=== PATIENT | female | born 1975 | race Caucasian/White ===

== ENCOUNTER 2018-05-05 19:39 | Inpatient (IN) | payer MEDICAID ==
[~2018-05-05] VITALS: Ht 160 cm; Wt 86.5 kg
[~2018-05-05 19:39] MED LIST: HTN MEDICATION; LABE100T39 PO; NIFE30TA66 PO; PREN1TAB62
[2018-05-05 20:48] VITALS: BP 191/92; PULSE 71; RESP 18; Ht 160 cm; Wt 86.5 kg
[2018-05-05] MEDS ORDERED: MAGNESIUM SULFATE 4 GM/100 ML 100 ML IVPB ONE (21:00)
[2018-05-05] MEDS ORDERED: LABETALOL HCL 20MG INJ IV PRN (21:00)
[2018-05-05] MEDS ORDERED: MAGNESIUM SULFATE 4 GM/100 ML 100 ML ONE (21:04)
[2018-05-05] MEDS ORDERED: MAGNESIUM SULFATE 20 GM/500 ML 500 ML IV ONE (21:04)
[2018-05-05] MEDS: LACTATED RINGER'S 1,000 ML IV SCH (21:23)
[2018-05-05] MEDS ORDERED: LACTATED RINGER'S 1,000 ML IV SCH (21:30)
[2018-05-05] MEDS: MAGNESIUM SULFATE 20 GM/500 ML 500 ML IV SCH (21:47)
[2018-05-05] MEDS ORDERED: BETAMET NA PHOS/AC(6 MG/ML) 2 ML INJ SYG IM ONE (22:00)
[2018-05-05] MEDS: LABETALOL HCL 20MG INJ IV PRN ×2 (22:33→23:27)
[2018-05-05] MEDS ORDERED: METH500T24 PO (23:55)
[2018-05-05] MEDS ORDERED: FER325 PO (23:55)
[2018-05-05] MEDS ORDERED: FOLI-49 PO (23:55)
[2018-05-05] MEDS ORDERED: CALC-207 PO (23:55)
[2018-05-05] MEDS ORDERED: ASPI325T30 PO (23:55)
[2018-05-06] VITALS (8 sets, daily range): BP systolic 145–177; BP diastolic 75–88; PULSE 61–69; RESP 16–20
[2018-05-06] MEDS ORDERED: HYDROCODONE/APAP (5/325) TAB PO ONE (00:30)
[2018-05-06] MEDS ORDERED: CEFAZOLIN 2 GM/50 ML (PMX) 50 ML IVPB ONE (00:46)
[2018-05-06] MEDS ORDERED: MISOPROSTOL 200 MCG TAB PR PRN ×2 (01:00→04:00)
[2018-05-06] MEDS ORDERED: CARBOPROST 250 MCG INJ IM PRN ×2 (01:00→04:00)
[2018-05-06] MEDS ORDERED: METHYLERGONOVINE 0.2 MG INJ IM PRN (01:00)
[2018-05-06] MEDS ORDERED: OXYTOCIN 30 UNITS/LR 500 ML IV SCH ×2 (01:00→03:39)
[2018-05-06] MEDS ORDERED: OXYTOCIN 30 UNITS/LR 500 ML IV PRN ×2 (01:00→04:00)
[2018-05-06] MEDS: LABETALOL 200 MG TAB PO SCH ×4 (01:00→22:08)
[2018-05-06] MEDS ORDERED: CEFAZOLIN 2 GM/50 ML (PMX) 50 ML IVPB SCH (01:00)
[2018-05-06] MEDS ORDERED: LABETALOL HCL 20MG INJ IV ONE ×2 (01:00→04:00)
[2018-05-06] MEDS: LABETALOL HCL 20MG INJ IV PRN ×2 (01:20→02:03)
[2018-05-06] MEDS ORDERED: hydrALAzine 20 MG INJ IV ONE ×2 (01:30→04:00)
--- NOTE | 2018-05-06 02:07 | PREAC ---
Date/Time of Note Date/Time of Note DATE: 05/06/18 TIME: 02:06 Anesthesia Eval and Record Evaluation Time Pre-Procedure Interview DATE: 05/06/18 TIME: 02:06 Age 43 Sex female NPO: 8 hrs Preoperative diagnosis high blood pressure Planned procedure c section Past Medical History Past Medical History: Includes Cardio: HTN Surgery & Anesthesia Issues No known issue Meds Anticoagulation: No Beta Joan within 24 hr: No Reason Beta Joan not given: Pt. not on B-Joan Reported Medications Aspirin* (Aspirin*) 325 Mg Tablet, 81 MG PO DAILY, TAB 05/05/18 Methyldopa* (Methyldopa*) 500 Mg Tablet, 500 MG PO BID, TAB 05/05/18 Calcium Carbonate/Vitamin D3 (Calcium 500 + Vit D 200 Tablet) 1 Each Tablet, 1 EACH PO, TAB 05/05/18 Folic Acid* (Folic Acid*) 1 Mg Tablet, 1 MG PO DAILY, TAB 05/05/18 Ferrous Sulfate* (Ferrous Sulfate*) 325 Mg Tabec, 325 MG PO DAILY, TAB 05/05/18 Vit-Iron Fumarate-FA ( Vitamin Tablet) 1 Each Tablet, EACH 11/07/13 Nifedipine* (Procardia XL*) 30 Mg/Bottle Tab.osm.24, 30 MG PO DAILY, TAB.SA 11/07/13 Labetalol Hcl (Labetalol Hcl) 100 Mg Tab, 200 MG PO BID, TAB 11/07/13 Current Medications Magnesium Sulfate 500 ml @ 50 mls/hr Q10H IV Last administered on 05/05/18at 21:47; Admin Dose 50 MLS/HR; Start 05/05/18 at 21:30 Lactated Ringer's 1,000 ml @ 75 mls/hr [id number] IV Last administered on 05/05/18at 21:23; Admin Dose 75 MLS/HR; Start 05/05/18 at 21:30 Labetalol HCl (Labetalol) 20 mg PRN PRN IV ELEVATED BLOOD PRESSURE Last administered on 05/06/18at 01:20; Admin Dose 20 MG; Start 05/05/18 at 22:00 Betamethasone Acet/Betameth SodPhos (Celestone Soluspan) 12 mg ONCE ONCE IM ; Start 05/06/18 at 23:00; Stop 05/06/18 at 23:01 Labetalol HCl (Normodyne) 200 mg Q8 PO ; Start 05/06/18 at 01:00 Cefazolin Sodium/ Dextrose 50 ml @ 100 mls/hr ONCE IVPB ; Start 05/06/18 at 01:00 Oxytocin/Lactated Ringer's 500 ml @ 125 mls/hr POST IV ; Start 05/06/18 at 01:00 Oxytocin/Lactated Ringer's 500 ml @ 0 mls/hr ONCE PRN IV VAGINAL BLEEDING; Start 05/06/18 at 01:00 Methylergonovine Maleate (Methergine) 0.2 mg ONCE PRN IM VAGINAL BLEEDING; Start 05/06/18 at 01:00 Carboprost Tromethamine (Hemabate) 250 mcg ONCE PRN IM VAGINAL BLEEDING; Start 05/06/18 at 01:00 Misoprostol (Cytotec) 1,000 mcg ONCE PRN [place] VAGINAL BLEEDING; Start 05/06/18 at 01:00 Meds reviewed: Yes Allergies Coded Allergies: No Known Allergy (Verified , 05/05/18) Allergies Reviewed: Yes Labs/Studies Labs Reviewed: Reviewed by anesthesiologist Result Diagram: 05/05/18211405/05/182114 Laboratory Tests 05/05/18 21:15 Blood Bank Test 05/05/18 21:15 Antibody Screen NEGATIVE Blood Type A POSITIVE Rh Immune Globulin Candidate NO test: N/A Pre-procedure Exam Last vitals Vital Signs Date Temp Pulse Resp B/P (MAP) Pulse Ox O2 O2 Flow FiO2 Time Delivery Rate 05/05/18 98.7 71 18 191/92 Room Air 20:48 (125) Airway: Adequate mouth opening, Adequate thyromental dist Mallampati: Mallampati IV Teeth: Normal Lung: Normal Heart: Normal ASA Physical Status ASA physical status: 3 Emergency: None Pre-operative Attestations Prior to commencing anesthesia and surgery, the patient was re-evaluated, there was verification of: *The patient's identity *The results of appropriate recent lab work and preoperative vital signs *The above evaluation not changing prior to induction *Anesthetic plan, risk benefits, alternative and complications discussed with patient/family; questions answered; patient/family understands, accepts and wishes to proceed. ACE DOTSON DO May 06, 2018 02:07
[2018-05-06] MEDS ORDERED: morphine SULFATE/PF (10 MG/10 ML) INJ ONE (02:08)
[2018-05-06] MEDS ORDERED: ONDANSETRON 4 MG INJ ONE (02:08)
[2018-05-06] MEDS ORDERED: FENTAnyl 50 MCG/ML VIAL ONE (02:08)
[2018-05-06] MEDS ORDERED: DEXAMETHASONE 4 MG/ML 1 ML INJ ONE (02:09)
[2018-05-06] MEDS ORDERED: OXYTOCIN 30 UNITS/LR 500 ML IV ONE (02:12)
[2018-05-06] MEDS ORDERED: KETOROLAC 30 MG INJ ONE ×2 (03:15→14:24)
[2018-05-06] MEDS ORDERED: MIDAZOLAM 1 MG/ML 2 ML INJ ONE (03:29)
--- NOTE | 2018-05-06 03:35 | OPPN ---
Date/Time of Note Date/Time of Note DATE: 05/06/18 TIME: 03:33 Operative Report Planned Procedure Procedure date May 06, 2018 Procedure(s) repeat low transverse CD Performed by see signature line Aboriginal Liaison Officer: TOOTIE SAL 2nd Aboriginal Liaison Officer none Anesthesiologist: ACE DOTSON DO Pre-procedure diagnosis iup at 34 wks ga, preeclampsia with severe features, previous CD [id number] Anesthesia Type: [id number] general Post-Procedure Post-procedure diagnosis same Findings a viable female 6/9, weight 2640 grams X1 reducible cord. normal uterus tubus and ovaries Estimated Blood Loss: 500 - 600 mls Specimen(s) none Grafts/Implant(s) none Complication(s) none MATILDA CLAROS MD May 06, 2018 03:35
[2018-05-06] MEDS ORDERED: LIDOCAINE 2% (SDV) 5 ML INJ ONE (03:37)
[2018-05-06] MEDS ORDERED: SUCCINYLCHOLINE CHLORIDE 100 MG/5 ML SYG IV ONE (03:37)
[2018-05-06] MEDS ORDERED: PROPOFOL 20 ML ONE (03:37)
[2018-05-06] MEDS ORDERED: MAGNESIUM SULFATE 20 GM/500 ML 500 ML IV SCH ×2 (03:39→14:00)
[2018-05-06] MEDS: LACTATED RINGER'S 1,000 ML IV SCH ×4 (03:39→21:32)
--- NOTE | 2018-05-06 03:46 | PAC ---
Date/Time of Note Date/Time of Note DATE: 05/06/18 TIME: 03:45 Post-Anesthesia Notes Post-Anesthesia Note Last documented vital signs Vital Signs Date Temp Pulse Resp B/P (MAP) Pulse Ox O2 O2 Flow FiO2 Time Delivery Rate 05/06/18 98 78 18 130/65 93 Room Air 0345 Activity: WNL Respiratory function: WNL Cardiovascular function: WNL Mental status: Baseline Pain reasonably controlled: Yes Hydration appropriate: Yes Nausea/Vomiting absent: Yes ACE DOTSON DO May 06, 2018 03:46
[2018-05-06] MEDS ORDERED: LABETALOL HCL 20MG INJ IV PRN ×5 (04:00)
[2018-05-06] MEDS ORDERED: ONDANSETRON 4 MG INJ IV PRN (04:00)
[2018-05-06] MEDS ORDERED: CA GLUCONATE (GM) 10% 10ML INJ IV PRN (04:00)
[2018-05-06] MEDS ORDERED: LANOLIN HPA 1 PKT TOP PRN (04:00)
[2018-05-06] MEDS ORDERED: hydrALAzine 20 MG INJ IV PRN ×3 (04:00)
[2018-05-06] MEDS ORDERED: NACL 0.9% 3 ML SYG IV SCH ×2 (04:00)
[2018-05-06] MEDS ORDERED: morphine (1 MG/ML) 10ML SYRINGE IV PRN ×3 (04:00)
--- NOTE | 2018-05-06 06:10 | PREOPHP ---
DATE OF ADMISSION: 05/05/2018 HISTORY OF PRESENT ILLNESS: Ms. Keira Nguyen is a 43-year-old 7, para 3, EDC 019 intrauterine at 34 weeks and 3 days gestational age, was sent from clinic today for scooby lusita of elevated blood pressures of 184/90. She has a history of gestational hypertension where s he is taking multiple antihypertensive medications; however, her blood pressures continued to be elev ated. When she presented to triage, her highest blood pressure was 191/92 and she is complaining of headaches. She was started on magnesium sulfate for seizure prophylaxis and given steroid treatment for lung maturity. She was also given antihypertensive medications; however, her blood pressur es continued to be elevated. Her care took place with Dr. Holloway at approximately 16 wee ks' gestational age. PAST MEDICAL HISTORY: Gestational hypertension. MEDICATIONS: 1. Methyldopa. 2. Iron. 3. Nifedipine. 4. Labetalol. OBSTETRIC HISTORY: Vaginal deliveries x2, one , which was required secondary to preeclampsi a, x3 missed AB. GYNECOLOGIC HISTORY: Twelve, regular 3 to 4 days. Denies any sexually transmitted disease. Sexuall y active with one partner. SOCIAL HISTORY: Denies any smoking, drugs or alcohol. FAMILY HISTORY: None. REVIEW OF SYSTEMS: All within normal except history of present illness. PHYSICAL EXAMINATION: HEENT: Within normal. LUNGS: CTA. CARDIOVASCULAR: S1, S2, regular rhythm. ABDOMEN: Gravid, nontender. Negative CVA bilateral. EXTREMITIES: Negative. No calf tenderness. PELVIC: Vaginal exam deferred. heart tracing category 1. [place]: No contractions. LABORATORY DATA: Urinalysis positive for proteins. Estimated weight of 3083 grams consistent with 36 weeks and 5 days gestational age by ultrasound. ASSESSMENT: A 43-year-old 7, para 3, intrauterine at 34 weeks and 3 days gestation al age, advanced maternal age, preeclampsia with severe features, previous section. PLAN: Consent for repeat delivery. Risks, benefits and alternatives explained. Plan NICU to consult. Continue seizure prophylaxis and antihypertensive meds. Dictated By: MATILDA GONZALEZ/TITA Conf#: [id number] DID#: [id number]
--- NOTE | 2018-05-06 06:19 | OPR ---
DATE OF OPERATION: 05/06/2018 PREOPERATIVE DIAGNOSES: Intrauterine at 34 weeks gestational age, advanced maternal age, p reeclampsia with severe features, previous delivery. POSTOPERATIVE DIAGNOSES: Intrauterine at 34 weeks gestational age, advanced maternal age, preeclampsia with severe features, previous delivery. PROCEDURE PERFORMED: Repeat low transverse delivery. SURGEON: Santos Rice MD. TRAVOGRAPH OPERATOR: Dr. Medina. ANESTHESIOLOGIST: Dr. Lauren. ANESTHESIA: General. COMPLICATIONS: None. ESTIMATED BLOOD LOSS: 500 mL. FINDINGS: A viable female, Apgars 6, 7 and 9 respectively at 1 and 5 and 10 minutes, weight 2640 gra ms, x1 reducible cord around the neck. Normal uterus, tubes and ovaries. DESCRIPTION OF PROCEDURE: After explaining the risks, benefits and alternatives, the patient consent signed in chart, the patient was taken to the operating room. She was prepared and draped in normal sterile fashion in dorsal supine position with a leftward tilt. General anesthesia was given. At t his point, a Pfannenstiel skin incision was then made with a scalpel and carried to the underlying of the fascia. The fascia was incised in the midline and incision was extended laterally with [place] sci ssors. The superior aspect of the fascial incision was then grasped with curved clamps, elevated and the underlying rectus muscles dissected off bluntly. Attention was then turned to the inferior aspe ct of the incision which in similar fashion was grasped, tented up with curved clamps and the rectus muscles dissected off bluntly. The rectus muscles in midline, peritoneum identified, grasp ed with pickups and sharply with Metzenbaum scissors. The peritoneal incision was extended superiorl y with good visualization of bladder. The bladder blade was then inserted and the vesicouterine margo toneum identified, grasped with pickups and sharply with Metzenbaum scissors. This incision was exte nded laterally and bladder flap created digitally. The bladder blade was reinserted and lower segmen t incised in transverse fashion with a scalpel. The uterine incision was extended laterally. The bl adder blade was removed and the 's head delivered atraumatically. The nose and mouth were suct ioned and cord clamped and cut. The infant was handed off to waiting data security administrator. The placenta was then removed. The uterus exteriorized and cleared of all clots and debris. The uterine incision wa s repaired with 1-0 chromic in a running locked fashion. A second layer of same suture was used for imbrication obtaining excellent hemostasis. The uterus was returned to the abdomen. The gutters wer e cleared of all clots. The peritoneum and rectus abdominis muscles were reapproximated with 2-0 Markos ryl in interrupted fashion. The fascia was reapproximated with 0 Vicryl in a running fashion. The s ubcutaneous tissue was reapproximated with 2-0 plain gut in a running fashion. The skin was closed w ith agatha. The patient tolerated the procedure well. The patient was extubated and taken to [facility] room in stable condition. Dictated By: SANTOS GONZALEZ/TITA Conf#: [id number] DID#: [id number]
--- NOTE | 2018-05-06 07:17 | TRIAGE ---
OB Triage Datetime Report Generated by CPN: 05/06/2018 07:17 Datetime: 05/06/2018 05:41 Stage of : Recovery Pain Assessment Pain Scale: 0 Pain Presence: None/Denies Pain Type: N/A Datetime: 05/06/2018 05:26 Stage of : Recovery Pain Assessment Pain Scale: 0 Pain Presence: None/Denies Pain Type: N/A Datetime: 05/06/2018 05:11 Stage of : Recovery Pain Assessment Pain Scale: 0 Pain Presence: None/Denies Pain Type: N/A Datetime: 05/06/2018 04:56 Stage of : Recovery Pain Assessment Pain Scale: 0 Pain Presence: None/Denies Pain Type: N/A Datetime: 05/06/2018 04:41 Stage of : Recovery Pain Assessment Pain Scale: 0 Pain Presence: None/Denies Pain Type: N/A Datetime: 05/06/2018 04:26 Stage of : Recovery Pain Assessment Pain Scale: 0 Pain Presence: None/Denies Pain Type: N/A Datetime: 05/06/2018 04:11 Stage of : Recovery Pain Assessment Pain Scale: 0 Pain Presence: None/Denies Pain Type: N/A Datetime: 05/06/2018 03:57 Stage of : Recovery Pain Assessment Pain Scale: 0 Pain Presence: None/Denies Pain Type: N/A Datetime: 05/06/2018 03:41 Stage of : Recovery Temperature Route: Axillary Pain Assessment Pain Scale: 0 Pain Presence: None/Denies Pain Type: N/A Datetime: 05/06/2018 02:35 Labor Evaluation Frequency: x1 Monitor Mode: External Duration (sec)2399: 90 Quality: Mild Pattern: Normal: <= 5 Contractions in 10 Minutes Resting Tone [place]: Relaxed Heart Rate FHR Baseline Rate: 120 Monitor Mode: External US Variability: Moderate 6-25 bpm Accelerations: 15X15 Decelerations: None Category: Category I Datetime: 05/06/2018 02:00 Labor Evaluation Frequency: x3 Monitor Mode: External Duration (sec)2399: 40-70 Quality: Mild Pattern: Normal: <= 5 Contractions in 10 Minutes Resting Tone [place]: Relaxed Heart Rate FHR Baseline Rate: 120 Monitor Mode: External US Variability: Moderate 6-25 bpm Accelerations: 15X15 Decelerations: None Category: Category I Datetime: 05/06/2018 01:00 Labor Evaluation Frequency: x2 Monitor Mode: External Duration (sec)2399: 70-80 Quality: Mild Pattern: Normal: <= 5 Contractions in 10 Minutes Resting Tone [place]: Relaxed Heart Rate FHR Baseline Rate: 120 Monitor Mode: External US Variability: Moderate 6-25 bpm Accelerations: 15X15 Decelerations: None Category: Category I Datetime: 05/06/2018 00:00 Monitor Mode: External Contraction Comments: NO UC'S NOTED Heart Rate FHR Baseline Rate: 125 Monitor Mode: External US Variability: Moderate 6-25 bpm Accelerations: 15X15 Decelerations: None Category: Category I Datetime: 05/05/2018 23:54 Monitor Mode: External US Datetime: 05/05/2018 23:30 Stage of : Antepartum Datetime: 05/05/2018 23:29 Monitor Mode: External US Datetime: 05/05/2018 23:17 Monitor Mode: External Monitor Mode: External US Datetime: 05/05/2018 23:00 Monitor Mode: External Contraction Comments: NO UC'S NOTED Heart Rate FHR Baseline Rate: 125 Monitor Mode: External US Variability: Moderate 6-25 bpm Accelerations: 15X15 Decelerations: None Category: Category I Datetime: 05/05/2018 22:51 Stage of : Antepartum Datetime: 05/05/2018 22:29 Vaginal Exam Membrane Status: Intact Datetime: 05/05/2018 22:28 Monitor Mode: External Monitor Mode: External US Datetime: 05/05/2018 22:25 Stage of : Antepartum Datetime: 05/05/2018 21:50 Assessment Type: Admission Assessment Maternal Assessment Level of Consciousness: Fully Conscious DTR's/Clonus: DTRs 2+; No Clonus Headache: Denies Blurred Vision: No Respiratory Effort: Unlabored; Regular Rhythm; Equal Expansion Breath Sounds, Left: Clear and Equal Breath Sounds, Right: Clear and Equal Nausea/Vomiting: Denies RUQ Epigastric Pain: Denies Facial Edema: None Fall Risk Assessment History of Falling: (0) No Secondary Diagnosis: (0) No Ambulatory Aid: (0) Bedrest/Nurse Assist Gait: (0) Normal/Bedrest/Immobile Mental Status: (0) Oriented to Own Ability Datetime: 05/05/2018 21:49 Time of Arrival: 05/05/2018 21:00 EGA: 34.0 Arrived By: Ambulatory Arrived From: Home Datetime: 05/05/2018 20:45 Stage of : OB Triage Assessment Type: Triage Time Provider Notified: 05/05/2018 20:38 Maternal Assessment Level of Consciousness: Fully Conscious DTR's/Clonus: DTRs 2+; No Clonus Headache: Denies Blurred Vision: No Respiratory Effort: Unlabored; Regular Rhythm; Equal Expansion Breath Sounds, Left: Clear and Equal Breath Sounds, Right: Clear and Equal Nausea/Vomiting: Denies RUQ Epigastric Pain: Denies Lower Extremities Edema: None Degree: None Upper Extremities Edema: None Degree: None Facial Edema: None Temperature Route: Oral Fall Risk Assessment History of Falling: (0) No Secondary Diagnosis: (0) No Ambulatory Aid: (0) Bedrest/Nurse Assist IV Therapy: (0) No Gait: (0) Normal/Bedrest/Immobile Mental Status: (0) Oriented to Own Ability Fall Score: 0 Fall Risk Score Definition: No Risk: No action required Monitor Mode: External Contraction Comments: none Heart Rate FHR Baseline Rate: 130 Monitor Mode: External US Variability: Moderate 6-25 bpm Accelerations: 15X15 Decelerations: None Category: Category I Pain Assessment Pain Scale: 0 Pain Presence: None/Denies Pain Type: N/A Pain Relief Measures: Comfort Measures Datetime: 05/05/2018 20:43 Time of Arrival: 05/05/2018 19:30 EGA: 34.0 Arrived By: Ambulatory Arrived From: Home Chief Complaint: Patient came in stating that she was to be induced today for high blood pressures. Patient is previous c/s x 1. Movement: Present Contractions: Denies/Absent Rupture of Membranes: Denies Vaginal Bleeding: None Vaginal Discharge: Denies Recent Sexual Intercouse: Denies Abdominal Trauma: Not Applicable Patient Complaints: None Time Provider Notified: 05/05/2018 20:38 Provider Notified: Dwayne Initial Plan: VS, BP q15 min, EFM Datetime: 05/05/2018 20:07 Membranes Ruptured Date/Time: 05/06/2018 03:06 Membranes Rupture Method: Artificial Amniotic Fluid Color: Clear Amniotic Fluid Amount: Large Amniotic Fluid Odor: Normal Presentation 'A': Cephalic
[2018-05-06] MEDS: MAGNESIUM SULFATE 20 GM/500 ML 500 ML IV SCH ×2 (08:00→18:40)
[2018-05-06] MEDS ORDERED: DIPHENHYDRAMINE 50 MG INJ IV PRN (10:00)
[2018-05-06] MEDS: CEFAZOLIN 2 GM/50 ML (PMX) 50 ML IVPB SCH ×2 (11:06→18:40)
[2018-05-06] MEDS ORDERED: OXYCODONE/ACETAMINOPHEN (5/325) TAB ONE (13:53)
[2018-05-06] MEDS: OXYTOCIN 30 UNITS/LR 500 ML IV SCH (14:04)
[2018-05-06] MEDS ORDERED: KETOROLAC 30 MG INJ IV STA (14:15)
[2018-05-06] MEDS: SENNA/DOCUSATE NA (8.6MG/50MG) TAB PO SCH ×2 (18:40→21:29)
[2018-05-06] MEDS ORDERED: METHYLDOPA 500 MG TAB PO SCH (21:00)
[2018-05-06] MEDS ORDERED: LABETALOL 100 MG TAB PO SCH (21:00)
[2018-05-06] MEDS ORDERED: BETAMET NA PHOS/AC(6 MG/ML) 2 ML INJ SYG IM ONE (23:00)
[2018-05-06] MEDS ORDERED: KETOROLAC 30 MG INJ IV ONE (23:47)
[2018-05-07] VITALS (17 sets, daily range): BP systolic 127–182; BP diastolic 59–84; PULSE 63–83; RESP 18–20
[2018-05-07] MEDS: OXYTOCIN 30 UNITS/LR 500 ML IV SCH ×2 (00:04→10:04)
[2018-05-07] MEDS: OXYCODONE/ACETAMINOPHEN (5/325) TAB PO PRN ×3 (03:00→21:11)
[2018-05-07] MEDS: CEFAZOLIN 2 GM/50 ML (PMX) 50 ML IVPB SCH (03:01)
[2018-05-07] MEDS: IBUPROFEN 600 MG TAB PO SCH ×4 (05:59→23:30)
[2018-05-07] MEDS: LABETALOL 200 MG TAB PO SCH ×3 (06:29→22:02)
[2018-05-07] MEDS: LACTATED RINGER'S 1,000 ML IV SCH (06:32)
[2018-05-07] MEDS ORDERED: ASPIRIN 81 MG TAB PO SCH (09:00)
[2018-05-07] MEDS ORDERED: FERROUS SULFATE (EC) 325 MG TAB PO SCH (09:00)
[2018-05-07] MEDS: SENNA/DOCUSATE NA (8.6MG/50MG) TAB PO SCH ×2 (09:04→21:10)
[2018-05-07] MEDS: FOLIC ACID 1 MG TAB PO SCH (09:04)
--- NOTE | 2018-05-07 10:54 | QN ---
Documentation Comment progress note pod 1 patient seen and evaluated no complaints no headache, n/v, sob, visual changes, epigastric pain bp 140/70 vs stable afebrile ab soft nt, no epigastric tenderness, dressing clean/dry extremity no edema no calf tenderness a sp cd pod 1 completed mg 24 hrs pp stable afebrile p.iron supplement encourage ambulation MATIDLA CLAROS MD May 07, 2018 10:54
[2018-05-07] MEDS: NIFEdipine (XL) 30 MG TAB PO SCH (17:06)
[2018-05-07] MEDS: FERROUS SULFATE (EC) 325 MG TAB PO SCH (21:10)
[2018-05-08] VITALS (9 sets, daily range): BP systolic 127–195; BP diastolic 63–88; PULSE 63–78; RESP 16–21
[2018-05-08] MEDS: IBUPROFEN 600 MG TAB PO SCH ×3 (05:34→17:40)
[2018-05-08] MEDS ORDERED: hydrALAzine 20 MG INJ IV ONE (06:00)
[2018-05-08] MEDS: LABETALOL 200 MG TAB PO SCH ×3 (06:53→22:18)
[2018-05-08] MEDS: NIFEdipine (XL) 30 MG TAB PO SCH (06:54)
[2018-05-08] MEDS ORDERED: BISACODYL 10 MG SUPP PR ONE (07:00)
--- NOTE | 2018-05-08 09:12 | QN ---
Documentation Comment progress note pod 2 patient seen and evaluated no complaints no headache, n/v, sob, visual changes, epigastric pain bp 145/69 vs stable afebrile ab soft nt, no epigastric tenderness, c/d/i no distention extremity no edema no calf tenderness a sp cd pod 2 completed mg 24 hrs pp stable afebrile p.iron supplement encourage ambulation hospitalist to manage bp's low sodium diet MATILDA CLAROS MD May 08, 2018 09:12
[2018-05-08] MEDS: FERROUS SULFATE (EC) 325 MG TAB PO SCH ×2 (10:32→20:40)
[2018-05-08] MEDS: SENNA/DOCUSATE NA (8.6MG/50MG) TAB PO SCH ×2 (10:32→20:40)
[2018-05-08] MEDS: FOLIC ACID 1 MG TAB PO SCH (10:32)
--- NOTE | 2018-05-08 12:09 | CONS ---
Date/Time of Note Date/Time of Note DATE: 05/08/18 TIME: 12:00 Assessment/Plan Assessment/Plan Hospital Course Assessment and plan: 43-year-old female hypertension, preeclampsia, 2 days ago, with continued high blood pressure. #Hypertension: Could be secondary to patient's preeclampsia, also patient does have a history of prior high blood pressure before -Would agree with the current medications including Procardia XL and labetalol PO, blood pressure appears to be improving this morning with administration of those medications -We will add hydralazine IV as needed systolic greater than 160 #Status post : Postop day #2. Again patient also treated for preeclampsia -Continue current recommendations per primary team We will continue to follow along with you. Result Diagram: 05/07/18 0704 05/06/18 1423 Results 24hrs Laboratory Tests Test 05/08/18 06:44 Lab Scanned Report REFERENCE LAB Consultation Date/Type/Reason Admit Date/Time May 05, 2018 at 20:38 Hx of Present Illness 43-year-old female past medical history of hypertension prior to , recent preeclampsia and performed on May 06, 2018, who presently has some high blood pressure. 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 Patient presently denies any vision changes, headaches, chest pain, shortness of breath, upper or lower GI bleeding, nausea vomiting, fevers or chills, diarrhea or constipation. Presently blood pressure stable systolic is in the 120 range, patient did take 2 p.o. blood pressure medicines this morning labetalol and Procardia XL. Past Medical History Medications Current Medications IV Flush (NS 3 ml) 3 ml PER PROTOCOL IV ; Start 05/06/18 at 04:00 Oxycodone/ Acetaminophen (Percocet (5/ 325)) 1 tab Q4H PRN PO PAIN LEVEL 4-6; Start 05/07/18 at 02:10 Oxycodone/ Acetaminophen (Percocet (5/ 325)) 2 tab Q4H PRN PO PAIN LEVEL 7-10 Last administered on 05/07/18at 21:11; Admin Dose 2 TAB; Start 05/07/18 at 02:10 Ibuprofen (Motrin) 600 mg Q6 PO Last administered on 05/08/18at 05:34; Admin Dose 600 MG; Start 05/07/18 at 06:00 Simethicone (Mylicon) 160 mg Q8H PRN PO DISTENSION/GAS/BLOATING Last administered on 05/08/18at 01:04; Admin Dose 160 MG; Start 05/06/18 at 04:00 Senna/Docusate Sodium (Senokot-S) 1 tab BID PO Last administered on 05/08/18at 10:32; Admin Dose 1 TAB; Start 05/06/18 at 09:00 Lanolin (Lanolin Hpa) 1 applic BEDSIDE MEDICATION PRN TOP BEDSIDE FOR MALU TO HIMANSHU MANJARREZ; Start 05/06/18 at 04:00 Oxytocin/Lactated Ringer's 500 ml @ 0 mls/hr ONCE PRN IV VAGINAL BLEEDING; Start 05/06/18 at 04:00 Carboprost Tromethamine (Hemabate) 250 mcg ONCE PRN IM VAGINAL BLEEDING; Start 05/06/18 at 04:00 Misoprostol (Cytotec) 1,000 mcg ONCE PRN SD VAGINAL BLEEDING; Start 05/06/18 at 04:00 IV Flush (NS 3 ml) 3 ml PER PROTOCOL IV ; Start 05/06/18 at 04:00 Calcium Gluconate (Ca Gluc) 1 gm ONCE PRN IV MAGNESIUM TOXICITY; Start 05/06/18 at 04:00 Labetalol HCl (Labetalol) 40 mg ONCE PRN IV ELEVATED BLOOD PRESSURE; Start 05/06/18 at 04:00 Labetalol HCl (Labetalol) 80 mg ONCE PRN IV ELEVATED BLOOD PRESSURE; Start 05/06/18 at 04:00 Hydralazine HCl (Apresoline) 10 mg ONCE PRN IV ELEVATED BLOOD PRESSURE Last administered on 05/07/18at 03:08; Admin Dose 10 MG; Start 05/06/18 at 04:00 Hydralazine HCl (Apresoline) 10 mg ONCE PRN IV ELEVATED BLOOD PRESSURE Last administered on 05/06/18at 05:46; Admin Dose 10 MG; Start 05/06/18 at 04:00 Labetalol HCl (Labetalol) 20 mg ONCE PRN IV ELEVATED BLOOD PRESSURE; Start 05/06/18 at 04:00 Labetalol HCl (Labetalol) 40 mg ONCE PRN IV ELEVATED BLOOD PRESSURE; Start 05/06/18 at 04:00 Diphenhydramine HCl (Benadryl) 25 mg Q6H PRN IV puritis Last administered on 05/06/18at 10:10; Admin Dose 25 MG; Start 05/06/18 at 10:00 Folic Acid (Folic Acid) 1 mg DAILY PO Last administered on 05/08/18at 10:32; Admin Dose 1 MG; Start 05/07/18 at 09:00 Labetalol HCl (Normodyne) 200 mg Q8 PO Last administered on 05/08/18at 06:53; Admin Dose 200 MG; Start 05/06/18 at 16:00 Ferrous Sulfate (Ferrous Sulfate (Ec)) 325 mg BID PO Last administered on 05/08/18at 10:32; Admin Dose 325 MG; Start 05/07/18 at 21:00 Nifedipine (Procardia Xl) 30 mg DAILY PO Last administered on 05/08/18at 06:54; Admin Dose 30 MG; Start 05/07/18 at 16:30 Allergies: Coded Allergies: No Known Allergy (Verified , 05/05/18) Past Surgical History Past Surgical Hx: other ( 2 days ago) Social History Smoking Status: Never smoker Exam/Review of Systems Vital Signs Vitals Vital Signs Date Temp Pulse Resp B/P (MAP) Pulse Ox O2 O2 Flow FiO2 Time Delivery Rate 05/08/18 98.3 69 18 145/69 Room Air 08:32 (94) 05/07/18 95 08:40 Intake and Output 05/07/18 05/07/18 05/08/18 1515:00 23:00 07:00 OutputOutput Total 1100 ml 300 ml BalanceBalance -1100 ml -300 ml Exam Gen: Lying in bed, no acute distress Eyes: Pupils equal, unreactive to light. No icterus. HEENT: Clear oropharynx, dry mucous membranes Neck: supple, full ROM. Card: S1, S2 heard Pulm: sounds clear. Abd: Soft, nontender, nondistended. Ext: No cyanosis, clubbing, edema Medications Medications Current Medications IV Flush (NS 3 ml) 3 ml PER PROTOCOL IV ; Start 05/06/18 at 04:00 Oxycodone/ Acetaminophen (Percocet (5/ 325)) 1 tab Q4H PRN PO PAIN LEVEL 4-6; Start 05/07/18 at 02:10 Oxycodone/ Acetaminophen (Percocet (5/ 325)) 2 tab Q4H PRN PO PAIN LEVEL 7-10 Last administered on 05/07/18at 21:11; Admin Dose 2 TAB; Start 05/07/18 at 02:10 Ibuprofen (Motrin) 600 mg Q6 PO Last administered on 05/08/18at 05:34; Admin Dose 600 MG; Start 05/07/18 at 06:00 Simethicone (Mylicon) 160 mg Q8H PRN PO DISTENSION/GAS/BLOATING Last administered on 05/08/18at 01:04; Admin Dose 160 MG; Start 05/06/18 at 04:00 Senna/Docusate Sodium (Senokot-S) 1 tab BID PO Last administered on 05/08/18at 10:32; Admin Dose 1 TAB; Start 05/06/18 at 09:00 Lanolin (Lanolin Hpa) 1 applic BEDSIDE MEDICATION PRN TOP BEDSIDE FOR MALU TO NIPPLES; Start 05/06/18 at 04:00 Oxytocin/Lactated Ringer's 500 ml @ 0 mls/hr ONCE PRN IV VAGINAL BLEEDING; Start 05/06/18 at 04:00 Carboprost Tromethamine (Hemabate) 250 mcg ONCE PRN IM VAGINAL BLEEDING; Start 05/06/18 at 04:00 Misoprostol (Cytotec) 1,000 mcg ONCE PRN SD VAGINAL BLEEDING; Start 05/06/18 at 04:00 IV Flush (NS 3 ml) 3 ml PER PROTOCOL IV ; Start 05/06/18 at 04:00 Calcium Gluconate (Ca Gluc) 1 gm ONCE PRN IV MAGNESIUM TOXICITY; Start 05/06/18 at 04:00 Labetalol HCl (Labetalol) 40 mg ONCE PRN IV ELEVATED BLOOD PRESSURE; Start 05/06/18 at 04:00 Labetalol HCl (Labetalol) 80 mg ONCE PRN IV ELEVATED BLOOD PRESSURE; Start 05/06/18 at 04:00 Hydralazine HCl (Apresoline) 10 mg ONCE PRN IV ELEVATED BLOOD PRESSURE Last administered on 05/07/18at 03:08; Admin Dose 10 MG; Start 05/06/18 at 04:00 Hydralazine HCl (Apresoline) 10 mg ONCE PRN IV ELEVATED BLOOD PRESSURE Last administered on 05/06/18at 05:46; Admin Dose 10 MG; Start 05/06/18 at 04:00 Labetalol HCl (Labetalol) 20 mg ONCE PRN IV ELEVATED BLOOD PRESSURE; Start 05/06/18 at 04:00 Labetalol HCl (Labetalol) 40 mg ONCE PRN IV ELEVATED BLOOD PRESSURE; Start 05/06/18 at 04:00 Diphenhydramine HCl (Benadryl) 25 mg Q6H PRN IV puritis Last administered on 05/06/18at 10:10; Admin Dose 25 MG; Start 05/06/18 at 10:00 Folic Acid (Folic Acid) 1 mg DAILY PO Last administered on 05/08/18at 10:32; Admin Dose 1 MG; Start 05/07/18 at 09:00 Labetalol HCl (Normodyne) 200 mg Q8 PO Last administered on 05/08/18at 06:53; Admin Dose 200 MG; Start 05/06/18 at 16:00 Ferrous Sulfate (Ferrous Sulfate (Ec)) 325 mg BID PO Last administered on 05/08/18at 10:32; Admin Dose 325 MG; Start 05/07/18 at 21:00 Nifedipine (Procardia Xl) 30 mg DAILY PO Last administered on 05/08/18at 06:54; Admin Dose 30 MG; Start 05/07/18 at 16:30 INGA SANTANA May 08, 2018 12:09
[2018-05-08] MEDS: hydrALAzine 20 MG INJ IV PRN (20:27)
[2018-05-08] MEDS: OXYCODONE/ACETAMINOPHEN (5/325) TAB PO PRN (20:41)
[2018-05-09] VITALS (13 sets, daily range): BP systolic 135–201; BP diastolic 63–96; PULSE 61–78; RESP 16–22
[2018-05-09] MEDS: hydrALAzine 20 MG INJ IV PRN (05:18)
[2018-05-09] MEDS: LABETALOL 200 MG TAB PO SCH (05:29)
[2018-05-09] MEDS: IBUPROFEN 600 MG TAB PO SCH ×4 (06:00→17:40)
[2018-05-09] MEDS: LABETALOL 100 MG TAB PO SCH ×3 (06:00→21:44)
[2018-05-09] MEDS: NIFEdipine (XL) 30 MG TAB PO SCH (08:45)
[2018-05-09] MEDS: SENNA/DOCUSATE NA (8.6MG/50MG) TAB PO SCH ×2 (08:45→21:43)
[2018-05-09] MEDS: FERROUS SULFATE (EC) 325 MG TAB PO SCH ×2 (08:45→21:55)
[2018-05-09] MEDS: FOLIC ACID 1 MG TAB PO SCH (08:45)
[2018-05-09] MEDS: OXYCODONE/ACETAMINOPHEN (5/325) TAB PO PRN (08:51)
--- NOTE | 2018-05-09 12:20 | CONS ---
Date/Time of Note Date/Time of Note DATE: 05/09/18 TIME: 12:17 Consult Date/Type/Reason Admit Date/Time May 05, 2018 at 20:38 Initial Consult Date Subjective No acute events overnight, on slightly higher dose of labetalol this morning. Objective Vital Signs Date Temp Pulse Resp B/P (MAP) Pulse Ox O2 O2 Flow FiO2 Time Delivery Rate 05/09/18 98.3 72 20 148/72 Room Air 12:07 (97) 05/09/18 95 05:52 Exam Gen: Lying in bed, no acute distress Eyes: Pupils equal, unreactive to light. No icterus. HEENT: Clear oropharynx, dry mucous membranes Neck: supple, full ROM. Card: S1, S2 heard Pulm: sounds clear. Abd: Soft, nontender, nondistended. Ext: No cyanosis, clubbing, edema Results/Medications Result Diagram: 05/07/18 0704 05/06/18 1423 Medications Current Medications IV Flush (NS 3 ml) 3 ml PER PROTOCOL IV ; Start 05/06/18 at 04:00 Oxycodone/ Acetaminophen (Percocet (5/ 325)) 1 tab Q4H PRN PO PAIN LEVEL 4-6 Last administered on 05/08/18at 20:41; Admin Dose 1 TAB; Start 05/07/18 at 02:10 Oxycodone/ Acetaminophen (Percocet (5/ 325)) 2 tab Q4H PRN PO PAIN LEVEL 7-10 Last administered on 05/09/18at 08:51; Admin Dose 2 TAB; Start 05/07/18 at 02:10 Ibuprofen (Motrin) 600 mg Q6 PO Last administered on 05/09/18at 11:51; Admin Dose 600 MG; Start 05/07/18 at 06:00 Simethicone (Mylicon) 160 mg Q8H PRN PO DISTENSION/GAS/BLOATING Last administer ed on 05/09/18at 00:17; Admin Dose 160 MG; Start 05/06/18 at 04:00 Senna/Docusate Sodium (Senokot-S) 1 tab BID PO Last administered on 05/09/18at 08:45; Admin Dose 1 TAB; Start 05/06/18 at 09:00 Lanolin (Lanolin Hpa) 1 applic BEDSIDE MEDICATION PRN TOP BEDSIDE FOR MALU TO NIPPLES; Start 05/06/18 at 04:00 Oxytocin/Lactated Ringer's 500 ml @ 0 mls/hr ONCE PRN IV VAGINAL BLEEDING; Start 05/06/18 at 04:00 Carboprost Tromethamine (Hemabate) 250 mcg ONCE PRN IM VAGINAL BLEEDING; Start 05/06/18 at 04:00 Misoprostol (Cytotec) 1,000 mcg ONCE PRN DE VAGINAL BLEEDING; Start 05/06/18 at 04:00 IV Flush (NS 3 ml) 3 ml PER PROTOCOL IV ; Start 05/06/18 at 04:00 Calcium Gluconate (Ca Gluc) 1 gm ONCE PRN IV MAGNESIUM TOXICITY; Start 05/06/18 at 04:00 Labetalol HCl (Labetalol) 40 mg ONCE PRN IV ELEVATED BLOOD PRESSURE; Start 05/06/18 at 04:00 Labetalol HCl (Labetalol) 80 mg ONCE PRN IV ELEVATED BLOOD PRESSURE; Start 05/06/18 at 04:00 Hydralazine HCl (Apresoline) 10 mg ONCE PRN IV ELEVATED BLOOD PRESSURE Last administered on 05/07/18at 03:08; Admin Dose 10 MG; Start 05/06/18 at 04:00 Hydralazine HCl (Apresoline) 10 mg ONCE PRN IV ELEVATED BLOOD PRESSURE Last administered on 05/06/18at 05:46; Admin Dose 10 MG; Start 05/06/18 at 04:00 Labetalol HCl (Labetalol) 20 mg ONCE PRN IV ELEVATED BLOOD PRESSURE; Start 05/06/18 at 04:00 Labetalol HCl (Labetalol) 40 mg ONCE PRN IV ELEVATED BLOOD PRESSURE; Start at 04:00 Diphenhydramine HCl (Benadryl) 25 mg Q6H PRN IV puritis Last administered on 05/06/18at 10:10; Admin Dose 25 MG; Start 05/06/18 at 10:00 Folic Acid (Folic Acid) 1 mg DAILY PO Last administered on 05/09/18at 08:45; Admin Dose 1 MG; Start 05/07/18 at 09:00 Ferrous Sulfate (Ferrous Sulfate (Ec)) 325 mg BID PO Last administered on 05/09/18at 08:45; Admin Dose 325 MG; Start 05/07/18 at 21:00 Nifedipine (Procardia Xl) 30 mg DAILY PO Last administered on 05/09/18at 08:45; Admin Dose 30 MG; Start 05/07/18 at 16:30 Hydralazine HCl (Apresoline) 10 mg Q6H PRN IV ELEVATED BLOOD PRESSURE Last administered on 05/09/18at 05:18; Admin Dose 10 MG; Start 05/08/18 at 12:30 Labetalol HCl (Normodyne) 300 mg Q8 PO ; Start 05/09/18 at 06:00 Assessment/Plan Chief Complaint/Hosp Course Assessment and plan: 43-year-old female hypertension, preeclampsia, 3 days ago, with continued high blood pressure. #Hypertension: Could be secondary to patient's preeclampsia, also patient does have a history of prior high blood pressure before . -Would agree with the current medications including Procardia XL and now slightly higher dose of labetalol PO, blood pressure appears to be improving this morning with administration of those medications -Continue hydralazine IV as needed systolic greater than 160. -From medicine point of view, blood pressure appears to be optimized with current doses of blood pressure medicines and would recommend sending her home on these current doses she is on now. #Status post : Postop day #3. Again patient also treated for preeclampsia -Continue current recommendations per primary team We will continue to follow along with you if she is still here in the hospital. INGA SANTANA May 09, 2018 12:20
--- NOTE | 2018-05-09 16:58 | QN ---
Documentation Comment progress note pod 3 patient seen and evaluated no complaints no headache, n/v, sob, visual changes, epigastric pain vs stable afebrile ab soft nt, no epigastric tenderness, c/d/i no distention extremity no edema no calf tenderness a sp cd pod 3 completed mg 24 hrs pp stable afebrile bp's improving with antihypertensive meds p.iron supplement encourage ambulation hospitalist to manage bp's low sodium diet consider discharge home tomorrow if stable MATILDA CLAROS MD May 09, 2018 16:58
[2018-05-10] MEDS: IBUPROFEN 600 MG TAB PO SCH ×4 (00:03→18:00)
[2018-05-10] MEDS: OXYCODONE/ACETAMINOPHEN (5/325) TAB PO PRN ×3 (03:42→15:09)
[2018-05-10 04:50] VITALS: BP 152/82; PULSE 65; RESP 18
[2018-05-10] MEDS: LABETALOL 100 MG TAB PO SCH ×2 (05:56→13:34)
[2018-05-10 08:35] VITALS: BP 165/80; PULSE 68; RESP 18
[2018-05-10] MEDS: FERROUS SULFATE (EC) 325 MG TAB PO SCH (08:42)
[2018-05-10] MEDS: SENNA/DOCUSATE NA (8.6MG/50MG) TAB PO SCH (08:42)
[2018-05-10] MEDS: FOLIC ACID 1 MG TAB PO SCH (08:42)
[2018-05-10] MEDS: NIFEdipine (XL) 30 MG TAB PO SCH (08:43)
[2018-05-10 09:30] VITALS: BP 145/71; PULSE 64
--- NOTE | 2018-05-10 12:52 | PD.PPDC ---
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
[2018-05-10 13:00] VITALS: BP 169/77; PULSE 62; RESP 18
--- NOTE | 2018-05-10 15:15 | DS ---
DATE OF ADMISSION: 05/05/2018 DATE OF DISCHARGE: 05/10/2018 PRIMARY DIAGNOSES: 1. Intrauterine at 39 weeks gestational age. 2. Advanced maternal age. 3. Preeclampsia with severe features. 4. Previous delivery. PROCEDURE: Repeat low transverse delivery. CONDITION ON DISCHARGE: Stable. ACTIVITY: None per vagina, no lifting x6 weeks. DIET: Regular. MEDICATIONS ON DISCHARGE: 1. Procardia-XL 30 mg p.o. daily, #30. 2. Labetalol 300 mg p.o. q.8 hours, #40. 3. Motrin 800 mg p.o. q.8 hours p.r.n. severe pain. 4. Iron 325 mg p.o. b.i.d., #60. DISCHARGE SUMMARY: Ms. Keira Nguyen is a 43-year-old who underwent a repeat deliver y on 05/06/2018. She had a viable female, Apgars 6, 7 and 9 respectively at 1, 5 and 10 minutes, mai ght of 2640 grams. She had an uneventful postop day 1, 2, 3 and 4. Her incision is clean, dry and i ntact. She is ambulating, tolerating diet, positive flatulence, positive bowel movement. She did co ntinue to have elevated blood pressures. Hospitalist/internal medicine were consulted and recommende d the above medication. She currently denies any headache, nausea, vomiting, shortness of breath or visual changes. Strict preeclamptic precautions were given to patient. The patient was also advised to follow up in the clinic with Dr. Holloway this Tuesday to remove her agatha and check her blood pressures. Dictated By: MATILDA GONZALEZ/TITA Conf#: [id number] DID#: [id number] CC: YUSUF HESS MD;*EndCC*
[2018-05-10 16:00] VITALS: BP 165/80; PULSE 63; RESP 18
== END 2018-05-10 18:35 | disposition home or self-care (01) | DRG 788 ==
LOC: OBT 19:39 → L-D 19:41 → OBT 20:38 → L-D 20:38 → PP1 05-06 18:37
PROVIDERS: ADMIT Obstetrics & Gynecology; ATTEND Obstetrics & Gynecology
PROC: 10D00Z1 Extraction of Products of Conception, Low, Open Approach (ICD-10-PCS; principal; 2018-05-05)
DX: O14.14 Severe pre-eclampsia complicating childbirth (principal); Z3A.34 34 weeks gestation of pregnancy; Z37.0 Single live birth; O69.81X0 Labor and delivery complicated by cord around neck, without compression, not applicable or unspecified; O34.211 Maternal care for low transverse scar from previous cesarean delivery
CPT/HCPCS: 76815; 76818; 80053; 81001; 83735; 84560; 85025; 85384; 85610; 85730; 86592; 86850; 86900; 86901; 87340; 99464; G0463; J0360; J0690; J0702; J1100; J1200; J1885; J2250; J2274; J2405; J2590; J3010; J3475; J7120